=== PATIENT | male | born 1935 | race Caucasian/White ===

== ENCOUNTER 2016-09-11 07:13 | Day surgery (SDC) | payer OTHER ==
[~2016-09-11] VITALS: Ht 185.4 cm; Wt 94.8 kg
[~2016-09-11 07:13] MED LIST: ALEVE220 M2 PO; CYANOCOBALAM1000 MCG PO; DIOVAN160 MG PO; HYDROCHLOROTH12.5 M3 PO; LUMIGAN 0.50 DROP/22 RIGHT EYE; PRESERVISION A1 EAC2 PO; PROSCAR5 MG PO; TAMSULOSIN HCL0.4 MG PO; TIMOLOL MALEATE15 M1 BOTH EYES; VERAPAMIL HCL120 M1 PO
== END 2016-09-11 17:30 | disposition home or self-care (01) ==
LOC: CATH 07:13
DX: R94.39 Abnormal result of other cardiovascular function study (principal); R06.02 Shortness of breath; I42.9 Cardiomyopathy, unspecified; I25.41 Coronary artery aneurysm; I34.0 Nonrheumatic mitral (valve) insufficiency; E11.9 Type 2 diabetes mellitus without complications
CPT/HCPCS: C1769; C1887; C1894; J1644; J2250; J3010; J7050